=== PATIENT | male | born 1995 | race Two or more races ===

== ENCOUNTER → 2016-09-19 | Outpatient (CLI) | payer OTHER, MEDICAID ==
--- NOTE | 2016-09-19 14:58 | CT ---
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 Comparison: None available. Technique: Axial images were obtained through the paranasal sinuses and coronal reformations were p erformed. The data was reformatted in bone algorithm. Dose reduction techniques were utilized. Findings: A 1.2-cm left maxillary mucous retention cyst/polyp is present. Minimal mucous membrane t hickening is present in the maxillary and ethmoid sinuses. The frontal and sphenoid sinuses are clear . The mastoid air cells are clear. Charline bullosa are noted bilaterally. The ostiomeatal units are pa tent. The nasal septum is midline. No osseous erosions are identified. Left parietal lucency suggest s sequela of previous craniotomy, with left frontal calvarial fusion hardware. The temporomandibular joints are aligned. Extensive left hemispheric encephalomalacia and moderate leftward shift is noted in the visualized portions of the brain. Impression: 1. Small left maxillary mucous retention cyst/polyp with minimal mucous membrane thickening, with no evidence of acute sinusitis. 2. Extensive left hemispheric encephalomalacia with leftward midline shift, consistent with reported history of previous surgery and infarct.
== END ==
LOC: CIMAGING 13:05
PROVIDERS: ATTEND Specialist
DX: R51 Headache (principal); J34.9 Unspecified disorder of nose and nasal sinuses; G93.89 Other specified disorders of brain
CPT/HCPCS: 70486-PO